=== PATIENT | male | born 1990 | race Caucasian/White ===

== ENCOUNTER 2016-11-08 11:22 | Emergency (ER) | payer OTHER ==
[~2016-11-08] VITALS: Ht 182.9 cm; Wt 140.3 kg
[~2016-11-08 11:22] MED LIST: ESCI1TAB10 PO; NXM/40 PO; TRAZ100T29 PO
[2016-11-08 11:25] VITALS: TEMP 37.1; Ht 182.9 cm; Wt 140.3 kg
[2016-11-08] MEDS ORDERED: OXYCODONE HCL IR 5 MG TAB (IMMEDIATE RELEASE) PO STA (12:32)
[2016-11-08] MEDS ORDERED: PENI-82 PO (12:39)
[2016-11-08] MEDS ORDERED: OXYC1TAB3 PO (12:39)
[2016-11-08 12:46] VITALS: BP 148/77; PULSE 80; O2SAT 95
[2016-11-08] MEDS ORDERED: ACET-749 PO (15:34)
--- NOTE | 2016-11-08 21:03 | EMERGENCY ROOM VISIT NOTE ---
History First contact with patient: 12:25 Chief Complaint: DENTAL PAIN Stated Complaint: BROKE TOOTH Nursing Triage Summary: pt c/o cracked L bottom molar for about a week, pt states the pain is getting worse, dental appt in 2 wks History of Present Illness The patient is a 26 year old male who presents to the Emergency Room with complaints of left lower dental pain and swelling for the past week. The patient reports that he noticed the swelling this morning. He denies any drainage or foul taste from the mouth. He reports that he cracked the molar approximately 1 to 2 years ago, and did not follow-up with his dentist. He has an appointment scheduled in 2 weeks with a dentist in [place]. He has tried [id number] medications without relief, and rates his discomfort a 9 out of 10 Review of Systems 10 system review was performed and was negative except for pertinent positives and negatives as indicated in history of present illness Past Medical/Surgical History Medical Problems: (1) Chronic Liver Dis Nec (2) Splenomegaly Surgical Problems: (1) No history of previous surgery Family History Unremarkable Social History Smoking Status: Current Every Day Smoker Alcohol Use: occasionally Marital Status: single Occupation Status: employed Current/Historical Medications Scheduled PRN Acetaminophen/Codeine (Tylenol W/Codeine #3), 1-2 TABS PO q4-6h PRN for Pain Allergies Coded Allergies: Aspirin (Unverified Allergy, Mild, hives, 01/19/14) Cephalosporins (Unverified Allergy, Mild, hives, 01/19/14) Physical Exam Vital Signs Date Time Temp Pulse Resp B/P (MAP) Pulse Ox O2 Delivery O2 Flow Rate FiO2 11/08/16 12:46 80 20 148/77 95 Room Air 11/08/16 11:25 37.1 79 18 146/90 96 Room Air Physical Exam CONSTITUTIONAL: Healthy and well nourished. Alert and oriented X 3. HEENT: Examination shows minimal left mandibular region edema. No skin erythema noted. Pupils equal, round and reactive. OROPHARYNX: The patient has tenderness to palpation and percussion of left mandibular wisdom tooth ADA 18. No gingival erythema, fluctuance or pointing. LYMPHATICS: No submandibular or submental adenopathy. NECK: Full active range of motion without discomfort. RESPIRATORY: Clear to auscultation bilaterally with no wheezing, crackles, rhonchi or stridor. CARDIOVASCULAR: Regular rate and rhythm with no murmurs, rubs or gallops. MUSCULOSKELETAL: Full range of motion of all joints without discomfort. NEUROLOGIC: Facial sensations are intact. Medical Decision & Procedures Medications Administered Medications (Trade) Dose Ordered Sig/Ferny Route Start Time Stop Time Status Last Admin Dose Admin Oxycodone HCl (Roxicodone Immediate Rel Tab) 5 mg NOW STAT PO 11/08/16 12:32 11/08/16 12:33 DC 11/08/16 12:49 5 MG ED Course Patient history and physical exam were performed. Nurse's notes were reviewed. Vital signs were reviewed, showing a blood pressure 146/90. The patient was advised of his elevated blood pressure reading, and instructed to follow-up with his PCP for recheck. The patient was provided prescriptions for Pen-Vee K 500 mg 4 times a day 10 days, and OxyIR 5 mg, dispensed #15 with no refills. No drinking alcohol or driving while taking OxyIR. The patient was encouraged to continue with NSAIDs and Tylenol for baseline pain relief. The patient was advised that he must follow-up with his dentist for further definitive management. He was also encouraged to call his family doctor as needed for further management until he can see his dentist. The patient was advised that the emergency department does not provide dental services, referrals or chronic dental pain management. The patient voiced understanding of all discharge instructions, was happy with plan of care, and rated his discomfort a 7 out of 10 at the time of discharge. He was administered and OxyIR 5 mg at the time of discharge. Our clinical pharmacist advise me that she received a phone call from the patient who reported that the [facility] pharmacy in [place] will not fill his prescription for OxyIR 5 mg. He requested that we send another prescription to the [facility] pharmacy instead. I made certain that our clinical pharmacist contacted the [facility] pharmacy to cancel the OxyIR prescription, and I therefore sent a prescription for Tylenol #3, dispense #20 with no refills to the [facility] pharmacy. Medical Decision [place] Drug Monitoring Program Search Results: patient reviewed within database, no issues identified Impression Primary Impression: Dental infection Departure Information Dispostion Home / Self-Care Prescriptions Acetaminophen/Codeine (Tylenol W/Codeine #3) 300 Mg/30 Mg Tab 1-2 TABS PO q4-6h Y for Pain, #20 TAB For Initial Treatment Prov: Alessandro Edmonds PA 11/08/16 Referrals Sam Higgins ., DDS Forms HOME CARE DOCUMENTATION FORM, IMPORTANT VISIT INFORMATION Patient Instructions My [facility] Additional Instructions Complete all Pen-Vee K antibiotics as prescribed. Ibuprofen 800 mg and/or Tylenol 1000 mg every 8 hours. You may also alternate these medications for more effective pain relief: Ibuprofen --4 HRS--> Tylenol --4 HRS--> ibuprofen --4 HRS--> Tylenol .... OxyIR if needed for worse pain. Do not drink alcohol or drive while taking OxyIR. Follow-up with your dentist for further definitive management. You may also contact your family doctor as needed for pain management until you can see your dentist. Emergency department does not provide dental services, referrals or ongoing dental pain management.
== END 2016-11-08 12:56 | disposition home or self-care (01) ==
LOC: C.EDB 11:23 → C.EDD 12:56
DX: S02.5XXA Fracture of tooth (traumatic), initial encounter for closed fracture (principal); F17.210 Nicotine dependence, cigarettes, uncomplicated; X58.XXXA Exposure to other specified factors, initial encounter; K04.7 Periapical abscess without sinus

== ENCOUNTER 2017-01-04 21:36 | Emergency (ER) | payer OTHER ==
[~2017-01-04] VITALS: Ht 182.9 cm; Wt 137.6 kg
[~2017-01-04 21:36] MED LIST changes: +ACET-749 PO; -ESCI1TAB10 PO; -NXM/40 PO; -TRAZ100T29 PO
[2017-01-04 21:45] VITALS: TEMP 37.1; Ht 182.9 cm; Wt 137.6 kg
[2017-01-04] MEDS ORDERED: DEXAMETHASONE SOD INJ 4 MG/ML VIAL IV STA (22:07)
[2017-01-04] MEDS ORDERED: MoRPHine SULFATE 10 MG/ML CARP/VIAL IV STA (22:07)
[2017-01-04] MEDS ORDERED: CLINDAMYCIN IV 600 MG in DEXTROSE 5% 50ML 50 ML IV ONE (22:15)
[2017-01-04] MEDS ORDERED: OPTIRAY 320 IV PRN (22:15)
[2017-01-04] MEDS ORDERED: IBUP-1050 PO (22:18)
[2017-01-04] MEDS ORDERED: CLIN300C2 PO (22:18)
[2017-01-04] MEDS ORDERED: KETO10TA PO (22:18)
[2017-01-04] MEDS ORDERED: ACET-1256 PO (22:18)
[2017-01-04 22:37] LABS: ISTAT CREATININE 1.2 mg/dl (0.6-1.3); ISTAT HEMOGLOBIN 13.6 g/dl (14.0-18.0); ISTAT IONIZED CALCIUM 1.2 mmol/l (1.12-1.32)
[2017-01-04 22:43] LABS: BASO % 0.3 %; BASO ABS # 0.03 K/uL (0-0.2); COMPLETE YES; EOS % 6.2 %; HEMATOCRIT 41.5 % (42-52); IG% 0.6 %; LYMPH % 23.7 %; LYMPH ABS # 2.09 K/uL (1.2-3.4); MEAN CELL VOLUME 81.1 fL (80-100); MEAN CORPUSCULAR HGB CONC 33.3 g/dl (32-36); MEAN PLATELET VOLUME 10.2 fL (7.4-10.4); MONO % 8.2 %; PLATELET COUNT 237 K/uL (130-400); RED BLOOD COUNT 5.12 M/uL (4.7-6.1); WHITE BLOOD COUNT 8.83 K/uL (4.8-10.8)
[2017-01-04 22:49] LABS: BUN/CREATININE RATIO 10.9 (10-20); CALCIUM 8.7 mg/dl (8.5-10.1); CREATININE 1.1 mg/dl (0.60-1.40); POTASSIUM 3.9 mmol/L (3.5-5.1)
--- NOTE | 2017-01-04 23:03 | EMERGENCY ROOM VISIT NOTE ---
History First contact with patient: 21:55 Chief Complaint: DENTAL PAIN Stated Complaint: BROKEN TOOTH, TOOTH INFECTION Nursing Triage Summary: pt c/o broken tooth and tooth pain, throat started to swell and hurts to swollow. started 3 days ago. has an appt next week to have it pulled History of Present Illness The patient is a 26 year old male who presents to the Emergency Room with complaints of left lower dental pain. The patient states that he broke off one of his left lower molars approximately 3 years ago. He began to have issues with pain over the past few days. He was seen at [place] emergency department yesterday and was prescribed clindamycin and Toradol which she has been taking as prescribed. He reports he has had persistent pain. He is concerned because the pain has been radiating down into his neck and he has had difficulty swallowing and breathing due to the pain. He denies any fevers. He has an appointment with a dentist to have the tooth extracted next week. He rates his discomfort a 10/10. Review of Systems A complete 10 point review of systems was reviewed with the patient with pertinent positives and negatives as per history of present illness. All else were negative. Past Medical/Surgical History Medical Problems: (1) Chronic Liver Dis Nec (2) Splenomegaly Surgical Problems: (1) No history of previous surgery Social History Smoking Status: Current Every Day Smoker Alcohol Use: occasionally Marital Status: single Occupation Status: employed Current/Historical Medications Scheduled Clindamycin Hcl (Cleocin), 300 MG PO Q6H Scheduled PRN Acetaminophen (Tylenol), 1,500-2,000 MG PO Q4 PRN for TOOTH ACHE Ibuprofen (Advil), 1,000 MG PO TID PRN for Pain Ketorolac (Toradol), 10 MG PO BID PRN for Pain Physical Exam Vital Signs Date Time Temp Pulse Resp B/P (MAP) Pulse Ox O2 Delivery O2 Flow Rate FiO2 01/04/17 23:08 79 20 155/96 96 Room Air 01/04/17 21:45 37.1 88 18 152/93 97 Room Air Physical Exam VITALS: Vitals are noted on the nurse's note and reviewed by myself. Vital signs stable. GENERAL: This is a 26-year-old male, in no acute distress, nondiaphoretic, well- developed well-nourished. SKIN: The skin was without rashes. EARS: External auditory canals clear, tympanic membranes pearly bird without erythema or effusion bilaterally. There is a blue tympanostomy tube in the left external auditory canal. EYES: Pupils equal round and reactive to light and accommodation. MOUTH: Mucous membranes moist. Several of the teeth are very carious. There is mild swelling of the left lower gums. There is no tenderness of the floor the mouth. FACE: There is tenderness to palpation in the left lower jaw in the left submental region. There is no significant edema, erythema or induration. NECK: Supple without nuchal rigidity. No lymphadenopathy. HEART: Regular rate and rhythm without murmurs gallops or rubs. LUNGS: Clear to auscultation bilaterally without wheezes, rales or rhonchi. NEURO: Patient was alert and oriented to person place and time. Medical Decision & Procedures ER Provider Diagnostic Interpretation: SOFT TISSUE NECK WITH CLINICAL HISTORY: Left sided dental pain, pain in neck, difficulty swallowing COMPARISON STUDY: No previous studies for comparison. TECHNIQUE: Axial images of the neck were obtained following intravenous injection of 93 cc of Optiray 320 IV. FINDINGS: Visualized portions of the intracranial contents are unremarkable. There is moderate polypoid mucosal thickening of the maxillary sinuses. The bilateral mastoid air cells are opacified. There is fluid within the bilateral middle ears. The parotid, submandibular and thyroid glands are unremarkable. The epiglottis is normal. No mucosal lesion is identified although these may be occult by CT. There is a periapical lucency of the left first mandibular molar with cortical disruption. No associated soft tissue abscess is identified. There is mild infiltration overlying the left mandibular body. A borderline enlarged left level 1 lymph node measures 1 cm in short axis diameter. There are several prominent left level 5 lymph nodes. The airway is patent. Lung apices are clear. Residual thymus is noted. Major vasculature of the neck is patent. IMPRESSION: 1. Periapical lucency of the left first mandibular molar with associated cortical disruption. No soft tissue abscess. Mild adjacent infiltration suggests cellulitis. 2. A few mildly enlarged left-sided cervical lymph nodes which are likely reactive. 3. Opacification of the bilateral mastoid air cells with fluid within the bilateral middle ears. The findings are nonspecific and could be correlated with mastoid pain to exclude the possibility of mastoiditis. 4. Mild to moderate polypoid mucosal thickening of the bilateral maxillary sinuses. Laboratory Results 01/04/17 22:20 Red Blood Count 5.12, Mean Corpuscular Volume 81.1, Mean Corpuscular Hemoglobin 27.0, Mean Corpuscular Hemoglobin Concent 33.3, Mean Platelet Volume 10.2, Neutrophils (%) (Auto) 61.0, Lymphocytes (%) (Auto) 23.7, Monocytes (%) (Auto) 8.2, Eosinophils (%) (Auto) 6.2, Basophils (%) (Auto) 0.3, Neutrophils # (Auto) 5.39, Lymphocytes # (Auto) 2.09, Monocytes # (Auto) 0.72, Eosinophils # (Auto) 0.55, Basophils # (Auto) 0.03 01/04/17 22:20 Test 01/04/17 22:20 01/04/17 22:24 White Blood Count 8.83 K/uL (4.8-10.8) Red Blood Count 5.12 M/uL (4.7-6.1) Hemoglobin 13.8 g/dL (14.0-18.0) Hematocrit 41.5 % (42-52) Mean Corpuscular Volume 81.1 fL (80-100) Mean Corpuscular Hemoglobin 27.0 pg (25-34) Mean Corpuscular Hemoglobin Concent 33.3 g/dl (32-36) Platelet Count 237 K/uL (130-400) Mean Platelet Volume 10.2 fL (7.4-10.4) Neutrophils (%) (Auto) 61.0 % Lymphocytes (%) (Auto) 23.7 % Monocytes (%) (Auto) 8.2 % Eosinophils (%) (Auto) 6.2 % Basophils (%) (Auto) 0.3 % Neutrophils # (Auto) 5.39 K/uL (1.4-6.5) Lymphocytes # (Auto) 2.09 K/uL (1.2-3.4) Monocytes # (Auto) 0.72 K/uL (0.11-0.59) Eosinophils # (Auto) 0.55 K/uL (0-0.5) Basophils # (Auto) 0.03 K/uL (0-0.2) RDW Standard Deviation 40.9 fL (36.4-46.3) RDW Coefficient of Variation 14.1 % (11.5-14.5) Immature Granulocyte % (Auto) 0.6 % Immature Granulocyte # (Auto) 0.05 K/uL (0.00-0.02) Est Creatinine Clear Calc Drug Dose 146.3 ml/min Estimated GFR () 106.8 Estimated GFR (Non- 92.2 BUN/Creatinine Ratio 10.9 (10-20) Calcium Level 8.7 mg/dl (8.5-10.1) Bedside Hemoglobin 13.6 g/dl (14.0-18.0) Bedside Hematocrit 40 % (42-52) Bedside Sodium 143 mEq/L (135-144) Bedside Potassium 4.0 mEq/L (3.3-5.0) Bedside Chloride 106 mEq/L (101-112) Bedside Total CO2 27 mEq/l (24-31) Anion Gap 15.0 mmol/L (16-25) Bedside Blood Urea Nitrogen 11 mg/dl (7-18) Bedside Creatinine 1.2 mg/dl (0.6-1.3) Bedside Glucose (other) 92 mg/dl (70-99) Bedside Ionized Calcium (Ilda) 1.20 mmol/l (1.12-1.32) Medications Administered Medications (Trade) Dose Ordered Sig/Ferny Route Start Time Stop Time Status Last Admin Dose Admin Clindamycin Phosphate 600 mg/ Dextrose 54 ml @ 100 mls/hr ONE ONCE IV 01/04/17 22:15 01/04/17 22:47 DC 01/04/17 23:23 100 MLS/HR Dexamethasone Sodium Phosphate (Decadron Inj) 10 mg NOW STAT IV 01/04/17 22:07 01/04/17 22:09 DC 01/04/17 22:32 10 MG Morphine Sulfate (MoRPHine SULFATE INJ) 10 mg NOW STAT IV 01/04/17 22:07 01/04/17 22:09 DC 01/04/17 22:36 10 MG ED Course The patient was evaluated as above. Labs were drawn and IV access was obtained. Patient was medicated with a dose of IV clindamycin, 10 mg Decadron and [address] of the neck was performed and read by radiology as above. Patient was reevaluated and findings were discussed. He was ready for discharge home. Discharge instructions were reviewed with the patient. The patient verbalized understanding of my assessment and treatment plan and was discharged home in good condition. Medical Decision Differential diagnosis includes dental abscess, Leonid angina, facial cellulitis , airway narrowing, among others. The patient is a 26-year-old male who presents today complaining of worsening left lower dental pain. The patient has been on approximately 24 hours of antibiotics. Concerned because of pain in his neck and difficulty swallowing and breathing. Although his physical exam is fairly benign, the symptoms were concerning and I felt a CT was warranted. CT of the neck was performed and showed cellulitis and reactive lymphadenopathy, but no evidence of Leonid angina or other acute process. There was evidence of questionable mastoiditis, but exam is not consistent with this. The patient will continue the clindamycin at home. He was given a short course of pain medication. He will follow-up with his dentist as scheduled for extraction of the tooth. Based on the patient's presentation and work up, I feel the patient is stable for outpatient treatment. The patient was educated to return to the emergency department for any worsening of their current condition or new/concerning symptoms. He will follow up with his dentist. [place] Drug Monitoring Program Search Results: patient reviewed within database, no issues identified Medication Reconcilliation Current Medication List: was personally reviewed by me Blood Pressure Screening Patient's blood pressure: Elevated blood pressure Blood pressure disposition: Elevated BP felt to be situational Impression Primary Impression: Dental infection Departure Information Dispostion Home / Self-Care Condition GOOD Prescriptions Hydrocodone/Acetaminophen 5MG/325MG ([place] 5MG/325MG) Tab 1-2 TABLET PO Q4H Y for Pain, #10 TAB For Initial Treatment Prov: Carol Diaz ., JIE 01/04/17 Referrals No Doctor, Assigned (PCP) Patient Instructions My [facility] Additional Instructions You have been treated in the Emergency Department for Dental Pain. You have received pain medicine in the emergency department which impairs your ability to operate a vehicle. It is illegal for you to drive after receiving these medicines. You have been prescribed [place] to be used for pain control. This is a narcotic medication. You cannot drive or consume alcohol while on this medicine. This medicine should only be used for pain that cannot be controlled with over-the- counter pain medicines. Continue the clindamycin as prescribed. For pain control, you can use the following [id number] medicines (if >12 yo): - Regular strength (325mg/tab) Tylenol (acetaminophen) 2 tabs every 4-6 hours as needed. Do not exceed 12 tablets in a 24 hour period. Avoid taking more than 4 grams (4000 mg) of Tylenol per day. This includes any other sources of acetaminophen you may take on a regular basis. - Regular strength (200 mg/tab) Advil (ibuprofen) 1-2 tabs every 4-6 hours as needed. Do not exceed a dose of 3200 mg per day. Refrain from smoking cigarettes or using chewing tobacco until you have been evaluated by your dentist. Keeping beverages lukewarm and consuming soft foods can decrease your pain. Warm compresses over the affected area may offer some relief. You MUST seek evaluation of your dental pain by a dentist following your visit to the Emergency Department. The Emergency Department is not capable of treating dental issues long-term. You should call your dentist as soon as possible to make an appointment for evaluation of your dental pain. Return to the emergency department if you develop the following symptoms despite treatment course outlined above: fever, intractable pain, increased redness, swelling, or purulent discharge.
--- NOTE | 2017-01-04 23:29 | DIAGNOSTIC IMAGING REPORT ---
SOFT TISSUE NECK WITH CLINICAL HISTORY: Left sided dental pain, pain in neck, difficulty swallowing COMPARISON STUDY: No previous studies for comparison. TECHNIQUE: Axial images of the neck were obtained following intravenous injection of 93 cc of Optiray 320 IV. FINDINGS: Visualized portions of the intracranial contents are unremarkable. There is moderate polypoid mucosal thickening of the maxillary sinuses. The bilateral mastoid air cells are opacified. There is fluid within the bilateral middle ears. The parotid, submandibular and thyroid glands are unremarkable. The epiglottis is normal. No mucosal lesion is identified although these may be occult by CT. There is a periapical lucency of the left first mandibular molar with cortical disruption. No associated soft tissue abscess is identified. There is mild infiltration overlying the left mandibular body. A borderline enlarged left level 1 lymph node measures 1 cm in short axis diameter. There are several prominent left level 5 lymph nodes. The airway is patent. Lung apices are clear. Residual thymus is noted. Major vasculature of the neck is patent. IMPRESSION: 1. Periapical lucency of the left first mandibular molar with associated cortical disruption. No soft tissue abscess. Mild adjacent infiltration suggests cellulitis. 2. A few mildly enlarged left-sided cervical lymph nodes which are likely reactive. 3. Opacification of the bilateral mastoid air cells with fluid within the bilateral middle ears. The findings are nonspecific and could be correlated with mastoid pain to exclude the possibility of mastoiditis. 4. Mild to moderate polypoid mucosal thickening of the bilateral maxillary sinuses. Electronically signed by: Porfirio Potts M.D. 01/04/2017 11:28 PM Dictated Date/Time: 01/04/2017 11:10 PM
[2017-01-04] MEDS ORDERED: HYDR-5688 PO (23:47)
[2017-01-05 00:03] VITALS: BP 143/77; PULSE 87; O2SAT 98
== END 2017-01-05 00:06 | disposition home or self-care (01) ==
LOC: C.EDB 21:38
DX: K04.7 Periapical abscess without sinus (principal); K71.8 Toxic liver disease with other disorders of liver; F17.200 Nicotine dependence, unspecified, uncomplicated